=== PATIENT | male | born 2000 | race Caucasian/White ===

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

== ENCOUNTER 2019-07-13 18:58 | Emergency (ER) | payer OTHER ==
[~2019-07-13] VITALS: Ht 170.2 cm; Wt 65.8 kg
[~2019-07-13 18:58] MED LIST changes: +ACID CONTROLLER20 MG PO; +NICOTINE1 EAC1 TD; +ZOFRAN ODT8 MG PO
== END 2019-07-13 20:38 | disposition home or self-care (01) ==
LOC: ED 18:58
DX: S06.0X0A Concussion without loss of consciousness, initial encounter (principal); F17.200 Nicotine dependence, unspecified, uncomplicated; V09.9XXA Pedestrian injured in unspecified transport accident, initial encounter
CPT/HCPCS: 70450; 70486; 99284-25

== ENCOUNTER 2019-07-15 14:18 | Emergency (ER) | payer OTHER ==
[~2019-07-15] VITALS: Ht 170.2 cm; Wt 65.8 kg
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
[2019-07-15] MEDS ORDERED: NORCO 7.5-3251 EACH PO (17:14)
== END 2019-07-15 17:24 | disposition home or self-care (01) ==
LOC: ED 14:18
DX: S20.211A Contusion of right front wall of thorax, initial encounter (principal); S40.011A Contusion of right shoulder, initial encounter; S70.01XA Contusion of right hip, initial encounter; F17.200 Nicotine dependence, unspecified, uncomplicated; V03.99XA Pedestrian with other conveyance injured in collision with car, pick-up truck or van, unspecified whether traffic or nontraffic accident, initial encounter
CPT/HCPCS: 71101; 72170; 73030; 99284-25; A9270